=== PATIENT | male | born 1970 | race Caucasian/White ===

== ENCOUNTER 2017-03-14 10:51 | Emergency (ER) | payer MEDICARE, MEDICAID ==
[~2017-03-14] VITALS: Ht 170.2 cm; Wt 73.0 kg
[2017-03-14 12:04] LABS: GLUCOSE URINE NEGATIVE (NEGATIVE); KETONES URINE NEGATIVE (NEGATIVE); LEUKOCYTE ESTERASE URINE 1+ (NEGATIVE); NITRITE URINE NEGATIVE (NEGATIVE); OCCULT BLOOD URINE 3+ (NEGATIVE); PROTEIN URINE NEGATIVE (NEGATIVE)
[2017-03-14 12:05] LABS: CLARITY URINE SL HAZY (CLEAR); COLOR URINE YELLOW (YELLOW)
[2017-03-14 13:38] VITALS: BP 114/78
== END 2017-03-14 13:40 | disposition home or self-care (01) ==
LOC: ER 11:40
DX: T83.098A Other mechanical complication of other urinary catheter, initial encounter (principal); N39.0 Urinary tract infection, site not specified; R33.8 Other retention of urine; Z86.011 Personal history of benign neoplasm of the brain; Z98.890 Other specified postprocedural states; Y84.6 Urinary catheterization as the cause of abnormal reaction of the patient, or of later complication, without mention of misadventure at the time of the procedure; Y92.019 Unspecified place in single-family (private) house as the place of occurrence of the external cause
CPT/HCPCS: 51702; 70450; 81001; 87077; 87086; 87186; 99285; A4315

== ENCOUNTER 2017-09-14 06:28 | Day surgery (SDC) | payer MEDICARE, MEDICAID ==
[2017-09-14] MEDS ORDERED: LACTATED RINGERS 1,000 ML IV SCH (08:50)
[2017-09-14] MEDS ORDERED: TRAZ-132 PO (10:11)
[2017-09-14] MEDS ORDERED: GABA-531 PO (10:11)
[2017-09-14] MEDS ORDERED: PROPOFOL 200MG/20ML VIAL IV ONE (10:17)
[2017-09-14] MEDS ORDERED: CIPROFLOXACIN 0.3% OPHTH SOLN 2.5ML ONE (10:18)
[2017-09-14] MEDS ORDERED: FENTANYL CITRATE/PF 50MCG/ML 2ML VIAL ONE (10:18)
[2017-09-14] MEDS ORDERED: PREDNISOLONE ACETATE 1% OPHTH DROPS 1ML ONE (10:18)
[2017-09-14] MEDS ORDERED: LIDOCAINE HCL 2%/EPINEPHRINE 1:100,000 20 ML VIAL INFIL ONE (10:18)
[2017-09-14] MEDS ORDERED: BALANCED SALT IRRIG SOLN 15ML ONE (10:18)
[2017-09-14] MEDS ORDERED: NEO/POLYMYX B SULF/DEXAMETH OPHTH OINT 3.5GM ONE (10:18)
[2017-09-14] MEDS ORDERED: CYCLOPENTOLATE HCL 1% OPHTH DROPS 2ML ONE (10:18)
[2017-09-14] MEDS ORDERED: BUPIVACAINE HCL/PF 0.75% (7.5MG/ML) 10ML ONE (10:18)
[2017-09-14] MEDS ORDERED: TETRACAINE 0.5% OPHTH DROPS 4ML ONE (10:18)
[2017-09-14] MEDS ORDERED: MIDAZOLAM HCL 2 MG/2 ML VIAL ONE (10:19)
[2017-09-14] MEDS ORDERED: MEPERIDINE HCL/PF 25MG/ML CPJ IV PRN (10:30)
[2017-09-14] MEDS ORDERED: ONDANSETRON HCL 4MG/2ML VIAL IV PRN (10:30)
[2017-09-14] MEDS ORDERED: LABETALOL HCL 20MG/4ML CARPUJECT IV PRN (10:30)
== END 2017-09-14 11:35 | disposition home or self-care (01) ==
LOC: OR 06:28
PROVIDERS: ATTEND Ophthalmology
DX: H11.001 Unspecified pterygium of right eye (principal); G40.89 Other seizures; M54.5 Low back pain; M19.90 Unspecified osteoarthritis, unspecified site; Z98.890 Other specified postprocedural states; Z86.73 Personal history of transient ischemic attack (TIA), and cerebral infarction without residual deficits; Z79.899 Other long term (current) drug therapy
CPT/HCPCS: 65426; J2250; J3010; J3490; J2704

== ENCOUNTER 2022-09-02 20:51 | Emergency (ER) | payer MEDICARE, MEDICAID ==
[~2022-09-02] VITALS: Ht 177.8 cm; Wt 98.8 kg
[~2022-09-02 20:51] MED LIST: DOCU-138 MT; GABA-532 MT; GABA-532 PO; TRAZ-252 PO; TRAZ150T78 MT
[2022-09-02 21:12] VITALS: BP 176/104
== END 2022-09-02 23:05 | disposition left against medical advice (07) ==
LOC: ER 20:51
DX: T83.091A Other mechanical complication of indwelling urethral catheter, initial encounter (principal); Y73.8 Miscellaneous gastroenterology and urology devices associated with adverse incidents, not elsewhere classified; F48.8 Other specified nonpsychotic mental disorders; R03.0 Elevated blood-pressure reading, without diagnosis of hypertension; Y92.018 Other place in single-family (private) house as the place of occurrence of the external cause
CPT/HCPCS: 99281

== ENCOUNTER 2024-04-14 20:29 | Emergency (ER) | payer MEDICARE, MEDICAID ==
[~2024-04-14] VITALS: Ht 165.1 cm; Wt 72.0 kg
[2024-04-14 21:29] VITALS: BP 153/92; PULSE 123; RESP 16; TEMP 98.4; O2SAT 98
[2024-04-14 23:36] LABS: BASOPHILS % 1.1 % (0.0-2.0); EOSINOPHILS % 6.7 % (0.0-5.0); HEMATOCRIT. 48.1 % (42.0-52.0); HEMOGLOBIN. 16.7 g/dL (14.0-18.0); LYMPHOCYTES % 14.5 % (20.0-50.0); MEAN CORPUSCULAR HEMOGLOBIN 31.1 pg (28.0-32.0); MEAN CORPUSCULAR HGB CONC 34.7 g/dL (31.0-37.0); MEAN CORPUSCULAR VOLUME 89.7 fL (80.0-94.0); MEAN PLATELET VOLUME 9.2 fl (7.4-10.4); MONOCYTES % 9.2 % (2.0-8.0); NEUTROPHILS % 68.5 % (40.0-76.0); PLATELET 286 x1000/uL (130-400); RED BLOOD CELL COUNT 5.36 mill/uL (4.7-6.1); RED CELL DISTRIBUTION WIDTH 13.7 % (11.6-14.6); WHITE BLOOD COUNT 16.1 x1000/uL (4.5-11.0)
[2024-04-14 23:43] LABS: CHLORIDE 103 mEq/L (98-107); POTASSIUM 4.6 mEq/L (3.5-5.1); SODIUM 138 mEq/L (136-145)
[2024-04-14 23:44] LABS: CARBON DIOXIDE 28 mEq/L (21-32)
[2024-04-14 23:45] LABS: CALCIUM 9.9 mg/dL (8.7-10.4)
[2024-04-14 23:49] LABS: GLUCOSE 123 mg/dL (70-105); UREA NITROGEN BLOOD 12 mg/dL (9-23)
[2024-04-15] MEDS ORDERED: SULF1TAB48 MT (02:18)
[2024-04-15] MEDS ORDERED: CEPH500C2 MT (02:18)
[2024-04-15] MEDS ORDERED: HYDR-4001 MT (02:18)
[2024-04-15] MEDS: PIPERACILLIN/TAZO 3.375G/50ML 50 ML IV ONE (02:23)
[2024-04-15] MEDS ORDERED: IOHEXOL-300 100 ML BOTTLE ONE (04:19)
== END 2024-04-15 02:59 | disposition home or self-care (01) ==
LOC: ER 20:29
DX: Z46.6 Encounter for fitting and adjustment of urinary device (principal); Z79.899 Other long term (current) drug therapy
CPT/HCPCS: 99285; 80048; 83605; 85025; 87040; 36415; 84145; 74177; 96365; Q9967; J2543

== ENCOUNTER 2024-06-09 11:44 | Emergency (ER) | payer MEDICARE, MEDICAID ==
[~2024-06-09] VITALS: Ht 175.3 cm; Wt 78.0 kg
[~2024-06-09 11:44] MED LIST changes: +CEPH500C2 MT; +HYDR-4001 MT; +SULF1TAB48 MT
[2024-06-09 12:06] VITALS: TEMP 97.8; O2SAT 100
[2024-06-09 13:59] VITALS: O2SAT 95
[2024-06-09 14:01] VITALS: BP 140/92; PULSE 87; RESP 18
[2024-06-09] MEDS: HYDROCODONE/ACETAMINOPHEN 5/325MG TABLET PO ONE (14:01)
== END 2024-06-09 15:47 | disposition left against medical advice (07) ==
LOC: ER 11:44
DX: R51.9 Headache, unspecified (principal); Z79.899 Other long term (current) drug therapy; Z98.890 Other specified postprocedural states
CPT/HCPCS: 99283

== ENCOUNTER 2025-03-28 14:38 | Emergency (ER) | payer MEDICARE, MEDICAID ==
[~2025-03-28] VITALS: Ht 175.3 cm; Wt 90.8 kg
[~2025-03-28 14:38] MED LIST changes: +GABA-1180 MT; +GABA-1180 PO; -GABA-532 MT; -GABA-532 PO
[2025-03-28 14:42] VITALS: TEMP 36.8; O2SAT 100
[2025-03-28] MEDS ORDERED: ACETAMINOPHEN 500MG TABLET PO ONE (15:30)
[2025-03-28] MEDS: HYDROCODONE/ACETAMINOPHEN 10/325MG TABLET PO ONE (15:52)
[2025-03-28 16:02] LABS: BASOPHILS % 1.1 % (0.0-2.0); EOSINOPHILS % 2.7 % (0.0-5.0); HEMATOCRIT. 44.4 % (42.0-52.0); HEMOGLOBIN. 15.1 g/dL (14.0-18.0); LYMPHOCYTES % 25.6 % (20.0-50.0); MEAN CORPUSCULAR HGB CONC 33.9 g/dL (31.0-37.0); MEAN CORPUSCULAR VOLUME 88.4 fL (80.0-94.0); MEAN PLATELET VOLUME 8.8 fl (7.4-10.4); MONOCYTES % 7.8 % (2.0-8.0); NEUTROPHILS % 62.8 % (40.0-76.0); PLATELET 276 x1000/uL (130-400); RED BLOOD CELL COUNT 5.02 mill/uL (4.7-6.1); RED CELL DISTRIBUTION WIDTH 14.1 % (11.6-14.6); WHITE BLOOD COUNT 10.3 x1000/uL (4.5-11.0)
[2025-03-28 16:11] LABS: CHLORIDE 109 mEq/L (98-107); POTASSIUM 4.1 mEq/L (3.5-5.1); SODIUM 139 mEq/L (136-145)
[2025-03-28 16:12] LABS: CALCIUM 9.5 mg/dL (8.7-10.4); CARBON DIOXIDE 22 mEq/L (21-32)
[2025-03-28 16:17] LABS: GLUCOSE 116 mg/dL (70-105); UREA NITROGEN BLOOD 11 mg/dL (9-23)
[2025-03-28 17:26] VITALS: BP 143/97; PULSE 90; RESP 16; O2SAT 100
== END 2025-03-28 19:36 | disposition home or self-care (01) ==
LOC: ER 14:38
DX: G89.29 Other chronic pain (principal); M54.50 Low back pain, unspecified; R51.9 Headache, unspecified; Z79.899 Other long term (current) drug therapy; Z86.73 Personal history of transient ischemic attack (TIA), and cerebral infarction without residual deficits; Z98.890 Other specified postprocedural states
CPT/HCPCS: 36415; 72131; 80048; 85025; 93005; 99284

== ENCOUNTER 2025-07-27 13:39 | Emergency (ER) | payer MEDICARE, MEDICAID ==
[~2025-07-27] VITALS: Ht 170.2 cm; Wt 77.0 kg
[2025-07-27 13:52] VITALS: BP 118/87; PULSE 99; RESP 16; TEMP 36.7; O2SAT 100; O2SAT 96
== END 2025-07-27 16:28 | disposition left against medical advice (07) ==
LOC: ER 13:39
DX: R51.9 Headache, unspecified (principal)
CPT/HCPCS: 99281